=== PATIENT | male | born 1995 | race Caucasian/White ===

== ENCOUNTER 2020-07-04 13:10 | Emergency (ER) | payer OTHER, BC, SELFPAY ==
--- NOTE | ~2020-07-04 | XR_ITS ---
EXAMINATION: XR ELBOW, LEFT CLINICAL INFORMATION: Fall, trauma, loss of sensation in hand. Reduced dislocation. COMPARISON: None TECHNIQUE: AP, lateral, and oblique views of the left elbow. FINDINGS: There is no fracture, dislocation, or visible capsular effusion. The articular surfaces appear intact. There is no joint narrowing or erosive change. XR/XR elbow LT min 3V IMPRESSION: Normal left elbow.
[2020-07-04 14:44] VITALS: BP 138/89; PULSE 72; RESP 16; TEMP 36.9; O2SAT 99; BMI 20.1
[2020-07-04 15:11] VITALS: BP 142/73; PULSE 74; RESP 16; O2SAT 100
[2020-07-04] MEDS: Morphine Sulfate 4 MG/ML CARTRIDGE IVPUSH (15:20)
--- NOTE | 2020-07-04 15:20 | ED_ITS ---
HPI - Extremity Problem General Chief complaint: Extremity Injury, Upper Stated complaint: L ELBOW INJ AT WORK Time Seen by Provider: 07/04/20 14:57 Source: patient Mode of arrival: ambulatory Limitations: no limitations History of Present Illness HPI Narrative: 25-year-old male who presents emergency department for evaluation of an elbow injury and numbness to his fingertips. The patient states that he was at work and he was on a truck which was approximately 8 ft off the ground. He states that the tailgate was not working switch to step over the tell gait. He then lost his balance and fell to the ground landing on his left elbow. He states that he landed on a rubberized surface. He believes that his elbow dislocated. He states that he pulled on his arm and eventually was able to get his elbow back in place. He is currently complaining of a constant, dull ache in his elbow which 8/10 at its worse and the pain is worse with movement of his elbow. He also states that he has numbness on the tips of his fingers. States he is unable to move his fingers or his elbow secondary to pain. Related Data Allergies Allergy/AdvReac Type Severity Reaction Status Date / Time aripiprazole [From Abilify] Allergy Facial Verified 07/04/20 14:48 Swelling Review of Systems Review of Systems: Yes all other systems are reviewed and are negative [facility] Past Medical History [facility] Narrative: Patient has a history ADHD, he is not taking any medications. He smokes 1 pack of cigarettes per day times 10 years. He denies tobacco and alcohol use. Medical History (Updated 07/04/20 @ 17:28 by Kwadwo Vu MD) No known health problems Social History Social History Alcohol intake: never Smoking Status: Current every day smoker Use of substances other than those prescribed or required for medical reasons: Yes Substance Use Type: Crack/Cocaine and Heroin Advance Directives: No Advance Directives Information Provided: Yes Physical Exam Vital Signs: Vital Signs: Last Vital Signs Temp 98.4 F 07/04/20 14:44 Pulse 66 07/04/20 16:00 Resp 18 07/04/20 16:00 BP 122/85 07/04/20 16:00 Pulse Ox 99 07/04/20 16:00 Body Mass Index 20.1 Const: General: cooperative and healthy appearing Nutritional Appearance: average body habitus Orientation/consciousness: oriented to person and oriented to place Limitations: no limitations HENMT: Head: Yes normal to inspection, Yes No palpable skull fracture present, Yes normocephalic and Yes atraumatic Eyes: General: appearance normal, both eyes and all related structures Alignment and Position: alignment normal Periorbital: periorbital findings no rmal Eyelids: Yes eyelids normal Conjunctivae: conjunctivae normal Sclerae: sclerae normal Neck: Neck: Yes normal visual inspection, Yes full ROM, Yes trachea midline an d No tender Chest: Chest palpation & inspection: normal inspection of the chest and normal palpation of entire chest wall Resp: Effort & Inspection: normal respiratory effort and able to speak in complete sentences GI: Inspection: Yes normal to inspection : General: Yes no CVA tenderness Back/Spine/Pelvis: Back: no CVA tenderness Cervical Spine: normal cervical lordosis Thoracic/Lumbar Spine: thoracic and lumbar spine normal to inspection Pelvis: no pain with anterior-posterior compression Skin: General skin exam: no rashes or lesions noted Neuro: General: oriented to person and oriented to place Cranial nerves: Yes CN's II-XII intact bilaterally Cognition (Neuro): normal cognition Extrem: Other: There are no abrasions or ecchymotic areas to his left extremity, he does have tenderness with palpation of the medial and lateral condyles of the left elbow and with palpation over the a olecranon process. The patient has limited active range of motion of his elbow secondary to pain but full passive range of motion however this is uncomfortable. The patient has strong radial pulses and palpable ulnar pulses. The patient has normal 2 point discrimination on the dorsal aspect of the hand, normal 2 point discrimination on the ventral aspect of the hand until you get to the DIP crease worry has poor 2 point discrimination distally. He has normal capillary refill. He is able to move all his fingers of the left hand with good strength but this does cause him to have pain. Course Course Course Narrative: 25-year-old male who presents emergency department for evaluation of a left elbow injury with decreased sensation to the tips of his fingers of the left hand distal to the PIP crease. Physical examination did reveal tenderness with palpation over the elbow and decreased sensation/2 point discrimination to the fingers distal to the PIP crease on the palmar aspect of the hand. X-ray of the left elbow revealed no acute fracture or dislocation . The patient was given IV morphine with improvement of his pain with some improvement of his numbness and increased ability to move his fingers. I did discuss the patient's presentation with the physician curriculum assistant covering the orthopedic surgeon, Yazmin Jason. The orthopedic doctor's recommendation was to place the patient in a sling and have the patient follow-up in the office tomorrow. The patient most likely has neurapraxia from the dislocation and I did discuss this with the patient. The patient was advised to take Tylenol and ibuprofen, wear the sling and follow-up with the orthopedic doctor. He will need to have his work status determined by the orthopedic doctor based on his improvement of his symptoms. Discharge Plan Discharge Clinical Impression: Closed dislocation of left elbow Qualifiers: Encounter type: initial encounter Qualified Code(s): S53.105A - Unspecified d islocation of left ulnohumeral joint, initial encounter Neurapraxia of left upper extremity Qualifiers: Encounter type: initial encounter Qualified Code(s): S44.92XA - Injury of unspecified nerve at shoulder and upper arm level, left arm, initial encounter Patient Disposition: Home, Self-Care Instructions: Neurapraxia (ED) Additional Instructions: The x-ray of your elbow reveals no broken bone. Your symptoms are most likely neurapraxia (nerve dysfunction secondary to stretching the nerves from the dislocation of your elbow). Wear the sling until you follow-up with your orthopedic doctor. Take ibuprofen 200 mg pills, 3 pills every 6 hours as needed for pain. Take Tylenol (acetaminophen) 500 mg pills, 2 pills every 4 to 6 hours as needed for pain. Follow-up with our orthopedic doctors on-call, Dr. Argueta and Dr. Ramsey. Call their office tomorrow morning, they wants to see you in the office tomorrow for re-evaluation. Please return to the emergency department if your symptoms get worse or if you develop any symptoms that are concerning to you. No work until your medically cleared by the orthopedic doctors. Referrals: Sherice Ramsey MD [Physician] - 1 day (Reported elbow dislocation after fall, self reduced, numbness to finger tips of left hand which improved after receiving IV morphine, please evaluate for further treatment.) Stand Alone Forms: Work/School Release
--- NOTE | 2020-07-04 15:21 | PC.NURSE ---
no deformity noted left elbow. no abrasion. lack of sensation distal palmar aspect of all finger brisk cap refill. color and temp are symmetrical with right hand.
--- NOTE | 2020-07-04 15:23 | PC.NURSE ---
large ice pack applied to elbow.
[2020-07-04 16:00] VITALS: BP 122/85; PULSE 66; RESP 18; O2SAT 99
--- NOTE | 2020-07-04 16:12 | PC.NURSE ---
no change in exam. tips of fingers continue to have decreased sensation.
[2020-07-04 17:37] VITALS: BP 122/70; PULSE 89; RESP 16; O2SAT 98
== END 2020-07-04 17:52 | disposition home or self-care (01) ==
PROVIDERS: Emergency Provider Emergency Medicine Emergency Medical Services; PCP Pediatrics
DX: S53.105A Unspecified dislocation of left ulnohumeral joint, initial encounter (principal); S44.92XA Injury of unspecified nerve at shoulder and upper arm level, left arm, initial encounter; W17.89XA Other fall from one level to another, initial encounter; Y93.89 Activity, other specified; Y92.812 Truck as the place of occurrence of the external cause; Y99.0 Civilian activity done for income or pay
CPT/HCPCS: 73080; 96374; 99284; J2270

== ENCOUNTER → 2020-07-05 12:26 | Outpatient (BNVA) | payer OTHER, BC, SELFPAY | PROVIDERS: PCP Pediatrics; Visit Provider Physician Assistant | DX: S53.105A Unspecified dislocation of left ulnohumeral joint, initial encounter (principal); S54.12XA Injury of median nerve at forearm level, left arm, initial encounter | CPT/HCPCS: 99202 ==

== ENCOUNTER → 2020-07-27 12:49 | Outpatient (BNVA) | payer OTHER, BC, SELFPAY | PROVIDERS: Visit Provider Physician Assistant | DX: S54.1 Injury of median nerve at forearm level (principal); S53.105D Unspecified dislocation of left ulnohumeral joint, subsequent encounter | CPT/HCPCS: 99212 ==

== ENCOUNTER 2020-08-01 12:52 | Outpatient (RCR) | payer OTHER, BC, SELFPAY | END 2020-08-17 15:13 | disposition other institution (70) | LOC: HO.OT 12:52 | PROVIDERS: PCP Pediatrics; Visit Provider Physician Assistant | DX: S54.12XA Injury of median nerve at forearm level, left arm, initial encounter (principal); S53.105A Unspecified dislocation of left ulnohumeral joint, initial encounter | CPT/HCPCS: 97140; 97165 ==

== ENCOUNTER → 2020-08-24 12:32 | Outpatient (BNVA) | payer OTHER, BC, SELFPAY | PROVIDERS: Visit Provider Physician Assistant | DX: S54.1 Injury of median nerve at forearm level (principal); S53.105D Unspecified dislocation of left ulnohumeral joint, subsequent encounter | CPT/HCPCS: 99212 ==

== ENCOUNTER 2021-01-03 19:59 | Emergency (ER) | payer BC, SELFPAY ==
--- NOTE | ~2021-01-03 | XR_ITS ---
EXAMINATION: XR CHEST CLINICAL INFORMATION: Pneumonia. COMPARISON: None TECHNIQUE: Frontal view of the chest was obtained. FINDINGS: No significant abnormality is noted involving the heart, lungs, mediastinum, bony thorax or soft tissues. XR/XR chest 1V IMPRESSION: Unremarkable chest examination.
[2021-01-03 20:02] VITALS: BP 139/85; PULSE 101; RESP 24; TEMP 36.1; O2SAT 97; BMI 24.3
[2021-01-03 20:53] LABS: COVID-19 Test Negative (Negative)
[2021-01-03 21:29] LABS: Influenza A PCR NEGATIVE (Negative); Influenza B PCR NEGATIVE (Negative); Resp Syncy Virus RNA Qual PCR POSITIVE (Negative); SARS COV2 PCR INHOUSE NEGATIVE (Negative)
--- NOTE | 2021-01-03 21:45 | ED.GENADULT ---
HPI - General Adult General Chief complaint: Dyspnea Stated complaint: Pneumonia? Time Seen by Provider: 01/03/21 20:37 Source: patient Mode of arrival: ambulatory Limitations: no limitations History of Present Illness HPI narrative: 25-year-old patient presents to the ED for redness of breath, cough, and wheezing. Patient was referred by Urgent Care to come to the ED to get a chest x-ray to evaluate for pneumonia. Patient states his girlfriend and roommates were sick last week and then he be came sick. Patient denies any swelling of lower extremities, calf pain, or pleuritic chest pain. Patient states he has not used any drugs for over 1 year. Related Data Previous Rx's Medication Instructions Recorded albuterol sulfate 90 mcg/actuation 2 puff INHALATION Q6H PRN #8.5 g 01/03/21 aerosol inhaler prednisone 20 mg tablet 60 mg PO DAILY 5 Days #15 tab 01/03/21 Allergies Allergy/AdvReac Type Severity Reaction Status Date / Time aripiprazole [From Abilify] Allergy Facial Verified 08/24/20 12:39 Swelling Review of Systems Review of Systems: Yes all other systems are reviewed and are negative Constitutional: Constitutional: Reports as per HPI, Reports no additional constitutional complaints, Reports body ache(s), Reports chills and Reports fever(s) Eyes: Eyes: Reports as per HPI and Reports no additional eye complaints ENT: Reports system reviewed and no additional complaints, except as documented and Reports as per HPI Cardiovascular: Cardiovascular: Reports as per HPI, Reports no additional cardiovascular complaints and Reports dyspnea Respiratory: Respiratory: Reports as per HPI, Reports no additional respiratory complaints, Reports cough and Reports dyspnea Gastrointestinal: Gastrointestinal: Reports as per HPI and Reports no additional gastrointestinal complaints Genitourinary: Genitourinary: Reports no additional male genitourinary complaints and Reports as per HPI Musculoskeletal: Musculoskeletal: Reports no additional musculoskeletal complaints and Reports as per HPI Neurologic: Reports system reviewed and no additional complaints, except as documented and Reports as per HPI Psychiatric: Psychiatric: Reports no additional psychiatric complaints and Reports as per HPI PMF Past Medical History Medical History No known health problems Surgical History H/O hernia repair Social History Social History (Updated 08/24/20 @ 12:40 by NANCI Larson) Alcohol intake: current Alcohol intake frequency: former alcohol drinker Patient Tobacco Use Status: Never used Tobacco Substance Use Type: Crack/Cocaine and Heroin Advance Directives: No Advance Directives Information Provided: Yes Current occupational status: employed Current occupation: [employer] - Right handed Physical Exam Vital Signs: Vital Signs: Last Vital Signs Temp 99.9 F 01/03/21 22:00 Pulse 91 01/03/21 22:11 Resp 20 01/03/21 22:00 BP 146/68 H 01/03/21 22:00 Pulse Ox 98 01/03/21 22:00 Body Mass Index 24.3 Const: General: cooperative, healthy appearing, comfortable, no acute distress, well developed, alert, awake and Physically active Orientation/consciousness: patient oriented x3 HENMT: Head: Yes normal to inspection, Yes No palpable skull fracture present, Yes normocephalic and Yes atraumatic Eyes: General: appearance normal, both eyes and all related structures Neck: Neck: Yes normal visual inspection, Yes full ROM, Yes no lymphadenopathy, Yes no meningeal signs, Yes trachea midline, Yes supple and No tender Chest: Chest palpation & inspection: normal inspection of the chest and normal palpation of entire chest wall Resp: Effort & Inspection: normal respiratory effort and able to speak in complete sentences Auscultation: wheezes expiratory wheezes Cardio: Jugular venous distension: no JVD Heart sounds: S1 normal heart sound present and S2 normal heart sound present GI: Inspection: Yes normal to inspection and No abdominal wall ecchymosis Palpation (GI): Soft to palpation, not firm, nontender, no guarding and not rigid : General: No CVA tenderness and Yes no CVA tenderness Back/Spine/Pelvis: Back: no CVA tenderness, No CVA tenderness and No back tenderness Skin: General skin exam: no rashes or lesions noted and elasticity normal Neuro: General: patient oriented x3, gait normal, no meningeal signs and CN's II-XI intact bilaterally Cranial nerves: Yes CN's II-XII intact bilaterally Extrem: General: Yes normal to inspection and Yes full ROM Psych: Appearance: grossly normal, well kempt and not disheveled Course Course Course Narrative: Patient will have COVID and strep ordered. Reevaluation(s) Reevaluation #1: Chest x-ray negative for pneumonia. Patient is not hypoxic. Patient came back negative for COVID. Patient positive for RSV. Albuterol inhaler steroids ordered. Patient will be discharged with albuterol and prednisone Time: 21:52 Medical Decision Making MDM Narrative Medical decision making narrative: RSV bronchitis Lab Data Labs: Lab Results 01/03/21 01/03/21 Range/Units 20:32 20:41 Coronavirus (PCR) NEGATIVE (Negative) COVID-19 ([facility]) Negative (Negative) COVID-19 Clin Com See Note Influenza Type A (PCR) NEGATIVE (Negative) Influenza Type B (PCR) NEGATIVE (Negative) RSV RNA Qual (PCR) POSITIVE A (Negative) Discharge Plan Discharge Clinical Impression: RSV bronchitis Patient Disposition: Home, Self-Care Instructions: Respiratory Syncytial Virus (ED) Additional Instructions: Return to the ED for any chest pain, shortness of breath, weakness, dizziness, shortness of breath on exertion, trach tubal fever, chills, or any other concerning symptoms. Please follow-up with primary care provider Prescriptions: New albuterol sulfate 90 mcg/actuation HFA aerosol inhaler 2 puff inhalation Q6H PRN (Reason: shortness of breath or wheezing) Qty: 8.5 RF: 0 prednisone 20 mg tablet 60 mg PO DAILY 5 Days Qty: 15 RF: 0 Stand Alone Forms: Work/School Release Interventions: ED Discharge Assessment Last Done: 01/03/21 22:23 Discharge Date/Time: 01/03/21 22:29 Print Language: Upper Sorbian
[2021-01-03 22:00] VITALS: BP 146/68; PULSE 96; RESP 20; TEMP 37.7; O2SAT 98
[2021-01-03] MEDS: Albuterol/Iprat 2.5/0.5MG 3 ML AMPUL.NEB INHALE (22:07)
[2021-01-03 22:11] VITALS: PULSE 91; O2SAT 98
[2021-01-03] MEDS: predniSONE 20 MG TABLET 60 MG PO (22:21)
== END 2021-01-03 22:29 | disposition home or self-care (01) ==
PROVIDERS: Physician Assistant; Emergency Provider Emergency Medicine
DX: J20.5 Acute bronchitis due to respiratory syncytial virus (principal); Z20.822 Contact with and (suspected) exposure to COVID-19
CPT/HCPCS: 0241U; 36415; 71045; 87635; 94640; 99282; 99284

== ENCOUNTER 2021-11-14 07:43 | Outpatient (REF) | payer BC, SELFPAY ==
[2021-11-14 08:13] LABS: COVID-19 Test Negative (Negative); IDNOW Serial# 55D5AD1C
== END 2021-11-14 07:44 | disposition home or self-care (01) ==
LOC: HO.LAB 07:43
PROVIDERS: Visit Provider Internal Medicine
DX: Z20.822 Contact with and (suspected) exposure to COVID-19 (principal)
CPT/HCPCS: 87635; C9803